=== PATIENT | male | born 1945 | race Two or more races ===

== ENCOUNTER 2023-08-16 22:01 | Inpatient (IN) | payer OTHER ==
[~2023-08-16] VITALS: Ht 177.8 cm; Wt 70.0 kg
[2023-08-17 00:09] LABS: Hematocrit 30.4 % (41.0-53.0); Hemoglobin 9.8 g/dL (13.5-17.5); Mean Corpuscular Hemoglobin 30.6 pg (28.0-32.0); Mean Corpuscular Hgb Conc. 32.2 g/dL (32.0-36.0); Mean Corpuscular Volume 94.9 fL (80.0-100.0); Red Cell Distribution Width 16.2 % (11.8-14.3); White Blood Cell 11.6 10^3/uL (4.4-10.8)
[2023-08-17 00:16] LABS: Basophils % (manual) 0 (0.0-2.0); Blast Cells 0; Metamyelocytes % 0; Myelocytes % 0; Promyelocytes % 0; Reactive Lymphocytes 0
[2023-08-17 00:25] LABS: Albumin 3.1 g/dL (3.2-4.8); Alkaline Phosphatase 78 U/L (46-116); Anion Gap 12 (5-15); Aspartate Aminotransferase 21 U/L (13-40); BUN/Creatinine Ratio 9.2 (10.0-20.0); Blood Urea Nitrogen 13 mg/dL (9-23); Calcium 8.9 mg/dL (8.7-10.4); Carbon Dioxide 21 mmol/L (20-30); Chloride 103 mmol/L (98-107); Glucose 136 mg/dL (74-106); Potassium 4.1 mmol/L (3.5-5.1); Sodium 136 mmol/L (136-145)
[2023-08-17 00:26] LABS: Bilirubin, Total 0.3 mg/dL (0.2-1.0); Total Protein 6.1 g/dL (5.7-8.2)
[2023-08-17 00:33] LABS: Alanine Aminotransferase < 9 U/L (7-40)
[2023-08-17 00:44] LABS: Band Neutrophils % (manual) 1; Eosinophils % (manual) 1 (0-7); Lymphocytes % (manual) 3 (10.0-50.0); Monocytes % (manual) 3 (0-12); Platelet Estimate Adequate
[2023-08-17 01:30] VITALS: PULSE 93; RESP 24; O2SAT 100
[2023-08-17] MEDS: SODIUM CHLORIDE 0.9% 1,000 ML IV ONE ×2 (01:35→03:19)
[2023-08-17] MEDS: HYDROcodone-ACET 10/325MG TAB PO ONE (01:39)
[2023-08-17] MEDS: FUROSEMIDE 40 MG/4 ML VIAL IV ONE (01:43)
[2023-08-17] MEDS: ASPirin 325 MG TAB PO ONE (04:07)
[2023-08-17] MEDS ORDERED: ONDANSETRON HCL 4 MG/2 ML VIAL IV PRN (06:30)
[2023-08-17] MEDS ORDERED: ACETAMINOPHEN 325 MG TAB PO PRN (06:30)
[2023-08-17] MEDS ORDERED: NITROGLYCERIN 0.4 MG SL TAB SL PRN (06:30)
[2023-08-17] MEDS ORDERED: HYDROcodone-ACET 5/325MG TAB PO PRN (06:30)
[2023-08-17] MEDS ORDERED: MORPHINE SULFATE INJ 2 MG/ml SYRG IV PRN ×2 (06:30)
[2023-08-17 08:02] VITALS: PULSE 72; RESP 16; O2SAT 95
[2023-08-17] MEDS: ENOXAPARIN SOD 30 MG/0.3 ML SYRINGE SC SCH (09:28)
[2023-08-17] MEDS: ASPirin 81 mg TAB PO SCH (09:40)
[2023-08-17 10:00] LABS: Urine Bacteria FEW /hpf (None Seen); Urine Blood 1+ /uL (Negative); Urine Clarity Turbid (Clear); Urine Color Colorless (Yellow); Urine Hyaline Cast FEW /lpf (0 - 2); Urine Mucus FEW (None Seen); Urine Protein, UAD TRACE (Negative); Urine Specific Gravity 1.009 (1.001-1.035); Urine Urobilinogen Normal (Negative); Urine WBC 169 /hpf (0 - 3); Urine pH 5.5 (5.0-9.0)
[2023-08-17] MEDS: cefTRIAXone 1GM/50ML D5W 50 ML IV ONE (14:29)
[2023-08-17 22:52] VITALS: PULSE 87; RESP 18
[2023-08-18 01:00] VITALS: BP 103/45; PULSE 78; RESP 16; TEMP 97.5; O2SAT 91
[2023-08-18 05:00] VITALS: BP 110/58; PULSE 74; RESP 17; TEMP 97.6; O2SAT 97
[2023-08-18 07:07] LABS: Chloride 104 mmol/L (98-107); Potassium 4.3 mmol/L (3.5-5.1); Sodium 134 mmol/L (136-145)
[2023-08-18 07:08] LABS: Anion Gap 10 (5-15); Calcium 9.2 mg/dL (8.7-10.4); Carbon Dioxide 20 mmol/L (20-30)
[2023-08-18 07:13] LABS: BUN/Creatinine Ratio 8.5 (10.0-20.0); Blood Urea Nitrogen 12 mg/dL (9-23); Glucose 107 mg/dL (74-106)
[2023-08-18 08:00] VITALS: PULSE 67
[2023-08-18] MEDS: cefTRIAXone 1GM/50ML D5W 50 ML IV SCH (09:05)
[2023-08-18] MEDS ORDERED: TAMS-35 PO (11:02)
[2023-08-18] MEDS ORDERED: TRAM-626 PO (11:02)
[2023-08-18] MEDS ORDERED: CEFU500T43 PO (11:02)
[2023-08-18 12:34] VITALS: BP 105/54; PULSE 58; RESP 16; TEMP 97.3; O2SAT 92
== END 2023-08-18 14:20 | disposition home or self-care (01) | DRG 682 ==
LOC: ER 22:01 → EDBD 22:01 → TELE 08-17 06:22 → TELE-CENTR 08-17 22:45
PROVIDERS: ADMIT Nurse Practitioner; ATTEND Internal Medicine
DX: N17.0 Acute kidney failure with tubular necrosis (principal); I21.A1 Myocardial infarction type 2; C18.9 Malignant neoplasm of colon, unspecified; N13.6 Pyonephrosis; G89.29 Other chronic pain; I95.9 Hypotension, unspecified; D64.9 Anemia, unspecified; E11.9 Type 2 diabetes mellitus without complications; M25.852 Other specified joint disorders, left hip; I11.0 Hypertensive heart disease with heart failure; I50.9 Heart failure, unspecified; M16.12 Unilateral primary osteoarthritis, left hip; Z85.46 Personal history of malignant neoplasm of prostate
CPT/HCPCS: 36415; 71045; 73502; 73700; 76775; 80048; 80053; 81001; 83605; 83880; 84484; 85007; 85027; 87086; 93005; 93306; 96361; 96365; G0378